=== PATIENT | female | born 1960 | race American Indian/Alaskan Native ===

== ENCOUNTER 2017-04-05 04:37 | Emergency (ER) | payer MEDICAID, MEDICARE ==
[2017-04-05 06:03] LABS: Bilirubin,Urine NEG (Negative); Blood,Urine NEG (Negative); Ketones,Urine NEG (Negative); Leukocyte Esterase,Urine NEG (Negative); Mucus,Urine FEW /HPF; Nitrite,Urine NEG (Negative); Protein,Urine <15 mg/dL mg/dL (Negative); RBC,Urine < 1.0 /HPF (0.0-6.0); Urobilinogen,Urine < 2.0 mg/dL (<2.0)
[2017-04-05 06:05] LABS: Basophils % (Auto) 0.3 % (0.0-1.8); Eosinophils % (Auto) 1.6 % (0.0-4.3); Hematocrit 41.7 % (30.3-42.9); Hemoglobin 14.3 gm/dl (10.1-14.3); Mean Corpuscular HGB Conc 34 % (30-34); Mean Corpuscular Hemoglobin 32 pg (28-32); Mean Corpuscular Volume 94 fl (79-97); Platelet Count 267 K/mm3 (140-440); Red Blood Count 4.44 M/mm3 (3.65-5.03)
[2017-04-05 06:19] LABS: Anion Gap 19 mmol/L; BUN/Creatinine Ratio 17.14; Blood Urea Nitrogen 12 mg/dL (7-17); Calcium 9.1 mg/dL (8.4-10.2); Carbon Dioxide 22 mmol/L (22-30); Chloride 99.9 mmol/L (98-107); Glucose 117 mg/dL (65-100); Potassium 3.8 mmol/L (3.6-5.0); Sodium 137 mmol/L (137-145)
--- NOTE | 2017-04-05 07:40 | XRay Report ---
CHEST 2 VIEWS INDICATION: Shortness of breath. COMPARISON: 09/18/2014 FINDINGS: PA and lateral chest radiographs demonstrate normal cardiomediastinal silhouette, given the inspiration. Nonspecific few small infrahilar rounded densities, though a subtle 5 mm right mid lung nodular density may represent a granuloma versus a blood vessel on-end, also questionably present on the prior exam overlying a rib. No pleural effusions or CHF. Intact bones. CONCLUSION: No definite acute chest process with findings, as above. Direct comparison with more remote chest imaging would also be helpful, if available. Thank you for the opportunity to participate in this patient's care.
--- NOTE | 2017-04-05 07:54 | Emergency Department Report ---
HPI - General Chief Complaint: Dyspnea/Respdistress Time Seen by Provider: 04/05/17 07:42 - HPI HPI: Chief complaint: shortness of breath, sore throat Patient complaining of one-day history of severe sore throat, pain with swallowing, says that this morning she started having some shortness of breath associated came to the ED. Patient denied any chest pain, no cough, but has low -grade fever at home. Patient have a history of high blood pressure. ED Past Medical Hx - Past Medical History Previous Medical History?: Yes Hx Hypertension: Yes Additional medical history: lymphedema L leg. - Surgical History Past Surgical History?: Yes Additional Surgical History: Hysterectomy - Family History Family history: hypertension - Social History Smoking Status: Never Smoker - Medications Home Medications: Home Medications Medication Instructions Recorded Confirmed Last Taken Type Benzonatate [Tessalon Perles] 100 mg PO Q8HR PRN #12 capsule 09/19/14 Unknown Rx Levofloxacin [Levaquin] 750 mg PO QDAY #7 tablet 09/19/14 Unknown Rx Amoxicillin/K Clav Tab [Augmentin 1 tab PO Q12HR #14 tab 04/05/17 Unknown Rx 875 mg] Ketorolac [Toradol] 10 mg PO Q6H PRN #20 tablet 04/05/17 Unknown Rx ED Review of Systems ROS: Stated complaint: SORE THROAT Other details as noted in HPI Comment: All other systems reviewed and negative Constitutional: fever ENT: throat pain Physical Exam - Physical Exam Vital Signs: Vital Signs 04/05/17 04/05/17 05:20 06:33 Temperature 98.2 F 98.4 F Pulse Rate 71 63 Respiratory 18 18 Rate Blood Pressure 184/113 Blood Pressure 177/80 [Left] O2 Sat by Pulse 97 98 Oximetry Physical Exam: Gen. alert and oriented 3 in no distress Head atraumatic normocephalic Eyes PERR LA EOMI Throat: Pharyngeal erythema, right tonsillar swelling. No abscess Chest regular rate and rhythm normal S1-S2 lungs clear bilaterally Abdomen soft nondistended Back no point tenderness paravertebral tenderness Neuro no focal deficit. Psych normal mood. ED Course Vital Signs 04/05/17 04/05/17 05:20 06:33 Temperature 98.2 F 98.4 F Pulse Rate 71 63 Respiratory 18 18 Rate Blood Pressure 184/113 Blood Pressure 177/80 [Left] O2 Sat by Pulse 97 98 Oximetry ED Medical Decision Making - Lab Data Result diagrams: 04/05/17 05:40 04/05/17 05:40 Critical care attestation.: If time is entered above; I have spent that time in minutes in the direct care of this critically ill patient, excluding procedure time. ED Disposition Clinical Impression: Pharyngitis, Tonsillitis Disposition: - TO HOME OR SELFCARE Is pt being admited?: No Does the pt Need Aspirin: No Condition: Stable Prescriptions: Amoxicillin/K Clav Tab [Augmentin 875 mg] 1 tab PO Q12HR #14 tab Ketorolac [Toradol] 10 mg PO Q6H PRN #20 tablet PRN Reason: Pain Referrals: PRIMARY CAREMD [Primary Care Provider] - 3-5 Days RYAN GUZMÁN MD [Staff Physician] - 3-5 Days
[2017-04-05 08:15] VITALS: BP 164/101
== END 2017-04-05 08:15 | disposition home or self-care (01) ==
LOC: ED 04:37
DX: J02.9 Acute pharyngitis, unspecified (principal); J03.90 Acute tonsillitis, unspecified; I10 Essential (primary) hypertension; Z88.5 Allergy status to narcotic agent
CPT/HCPCS: 36415; 71020; 80048; 81001; 84484; 85025; 93005; 93010

== ENCOUNTER 2018-11-16 08:52 | Outpatient (CLI) | payer MEDICARE ==
--- NOTE | 2018-11-16 09:43 | Mammography Report ---
BILATERAL MAMMOGRAM: FINDINGS: The breast tissue is heterogeneously dense, which could obscure detection of small masses (approximately 50%-75% glandular). No mass, distortion, suspicious calcification, or skin change is seen. CAD was utilized. IMPRESSION: Negative mammogram. There is no mammographic evidence of malignancy. RECOMMENDATION: Follow-up per ACS guidelines. BI-RADS CATEGORY: 1 = Negative ACR BI-RADS MAMMOGRAPHIC CODES: 0 = Needs additional imaging evaluation; 1 = Negative; 2 = Benign; 3 = Probably benign; 4 = Suspicious; 5 = Malignant; 6 = Known biopsy-proven malignancy COMMENT: 1. Dense breast tissue, i.e., adenosis, fibrocystic changes, etc., may obscure an underlying neoplasm. 2. Approximately 10% of cancers are not detected with mammography. 3. A negative mammography report should not delay biopsy if a clinically suspicious mass is present. COMMENT: Patient follow-up letters are generated in [employer].
== END 2018-11-16 08:53 | disposition home or self-care (01) ==
LOC: MAMMO 08:52
PROVIDERS: ATTEND Family Medicine
DX: Z12.31 Encounter for screening mammogram for malignant neoplasm of breast (principal); I10 Essential (primary) hypertension; K21.9 Gastro-esophageal reflux disease without esophagitis; Z90.710 Acquired absence of both cervix and uterus
CPT/HCPCS: 77067